=== PATIENT | female | born 1940 | race Caucasian/White ===

== ENCOUNTER 2022-01-07 19:29 | Emergency (ER) | payer BC, MEDICARE ==
[~2022-01-07] VITALS: Ht 170.2 cm; Wt 54.5 kg
[2022-01-07 19:35] VITALS: BP 179/84
[2022-01-07] MEDS ORDERED: bacitracin 15gm ointment TP ONE ×2 (20:05→21:25)
[2022-01-07] MEDS ORDERED: amox tr/potassium clavulanate 875/125mg TAB PO ONE (20:05)
[2022-01-07] MEDS ORDERED: TETanus/Pertussis (Acell)/Diphther VAC/PF (Tdap-Adult) 0.5ml syringe IMVAC ONE (20:05)
[2022-01-07] MEDS ORDERED: AMOX-117 PO (21:10)
== END 2022-01-07 22:03 | disposition home or self-care (01) ==
LOC: ER 21:58
DX: S61.212A Laceration without foreign body of right middle finger without damage to nail, initial encounter (principal); Z79.2 Long term (current) use of antibiotics; W54.0XXA Bitten by dog, initial encounter; Y93.89 Activity, other specified; Y92.89 Other specified places as the place of occurrence of the external cause; Y99.8 Other external cause status
CPT/HCPCS: 12001; 90715; 99283